=== PATIENT | female | born 1955 | race Caucasian/White ===

== ENCOUNTER → 2016-10-04 | Outpatient (CLI) | payer OTHER ==
[~2016-10-04] MED LIST: ACET-77 PO; AMLO10TA2 PO; ASPI-808 PO; CARV12.53 PO; CATHETER FLUSH 10 ML SYR IV PRN; CELE200C PO; CHOL200014 PO; CLOP75TA69 PO; CYCL10TA9 PO; DOCU100T7 PO; FLUT9.9S NS; GABA600T2 PO; LISI30TA5 PO; LOVA20TA2 PO; MIRA50TA PO; PANT40TA3 PO; REGADENOSON 0.4 MG/5 ML SYR (LEXISCAN) IV ONE; RT-ALBUINH IH; SENN-137 PO; TIOT18CA2 IH; [UNRECOGNIZED DRUG - CODE] PO
[2016-10-04 13:01] VITALS: BP 145/91
[2016-10-04 13:04] VITALS: BP 146/79
[2016-10-04 13:06] VITALS: BP 139/86
[2016-10-04 13:07] VITALS: BP 142/90
--- NOTE | 2016-10-05 08:27 | STRESS TEST ---
PROCEDURE PHYSICIAN: ALFONSO MINOR DATE OF PROCEDURE: 10/04/2016 RESTING AND POST REGADENOSON TECHNETIUM 99M TETROFOSMIN SPECT CT IMAGING: ORDERING PHYSICIAN: Dr. Minor. PRIMARY PHYSICIAN: Dr. Lawson. OTHER PHYSICIAN: Lexi Morillo APRN CLINICAL DIAGNOSES: 1. Coronary artery disease. 2. COPD. 3. Tobacco use. 4. Hypertension. Baseline images were carried out after injection of 10.47 mCi of technetium 99m tetrofosmin. This was followed by 0.4 mg of regadenoson and 32.9 mCi of technetium 99m tetrofosmin for stress imaging. The electrocardiogram showed sinus rhythm at baseline and the electrocardiogram did not change significantly with regadenoson infusion. Isolated premature ventricular contractions were seen during the study. She noted moderate shortness of breath and mild chest discomfort, which resolved in a few minutes after the regadenoson infusion. Review of images at rest and following stress, indicate a small fixed apical perfusion defect. Gated images show well preserved global left ventricular systolic function. There appears to be a small area of apical akinesis. Left ventricular ejection fraction is calculated to be 72%. Left ventricular end-diastolic volume is 64 mL. TID is absent (0.9). CONCLUSIONS: 1. This study suggests a small apical infarction without ischemia. 2. Small area of localized apical akinesis. 3. Left ventricular ejection fraction is calculated to be 72%. Job ID: [id number] Dictated Date: 10/04/2016 15:29:07 Engagement Quality Consultant Date: 10/05/2016 08:23:00 / pito
== END ==
LOC: CARD 11:05
PROVIDERS: ATTEND Internal Medicine Cardiovascular Disease
DX: I25.10 Atherosclerotic heart disease of native coronary artery without angina pectoris (principal); J43.8 Other emphysema; I10 Essential (primary) hypertension; R06.02 Shortness of breath; Z72.0 Tobacco use
CPT/HCPCS: 78452; 93017

== ENCOUNTER → 2016-10-11 | Outpatient (CLI) | payer MEDICARE, OTHER ==
[~2016-10-11] MED LIST changes: -CATHETER FLUSH 10 ML SYR IV PRN; -REGADENOSON 0.4 MG/5 ML SYR (LEXISCAN) IV ONE
--- NOTE | 2016-10-14 07:17 | ECHOCARDIOGRAPHY REPORT ---
PROCEDURE PHYSICIAN: ALFONSO MINOR DATE OF PROCEDURE: 10/11/2016 TWO DIMENSIONAL ECHOCARDIOGRAM REPORT PRIMARY PHYSICIAN: Dr. Lawson OTHER PHYSICIAN: India Morillo APRN REFERRING PHYSICIAN: ORDERING PHYSICIAN: Dr. Minor INDICATION FOR THE PROCEDURE: Coronary artery disease. MEASUREMENTS DERIVED VALUES LV DIAMETER (LAX) NORMALS NORMALS Diastolic 4.8 (3.6-5.2) Eject. Fract. (60%+/-6%) Systolic (2.3-3.9) Diastolic Vol. % Shortening (0.22-0.42) Systolic Vol. Aortic Root 3.2 IVS THICKNESS Diastolic 1.1 (0.6-1.1) LVPW THICKNESS Diastolic 0.9 (0.6-1.1) LA DIAMETER Systolic 3.3 (2.1-3.7) DESCRIPTION: This is a technically difficult study and is not ideal for wall motion analysis. Global left ventricular systolic function appears well preserved. Left ventricular ejection fraction is approximately 55%. The aortic, mitral and tricuspid valve leaflets show good leaflet excursion. There Is no significant pericardial effusion seen. Doppler imaging shows trivial to mild mitral, tricuspid, pulmonic and aortic regurgitation. There is no Doppler evidence of significant valvular stenosis. Mitral inflow is suggestive of grade I diastolic dysfunction of the left ventricle. Pulmonary artery pressure is estimated to be approximately 35 mmHg. There is no Doppler evidence of significant valvular stenosis. There is no evidence of significant intracardiac shunt on this transthoracic echographic study. The inferior vena cava appears to be of normal size and exhibits inspiratory collapse. CONCLUSIONS: 1. Normal left ventricular systolic function with an ejection fraction of approximately 55%. 2. Trivial to mild mitral, tricuspid, pulmonic and aortic regurgitation. 3. Mild diastolic dysfunction of the left ventricle. 4. Pulmonary artery systolic pressure is estimated to be approximately 35 mmHg. Job ID: [id number] Dictated Date: 10/13/2016 11:27:16 Video Game Designer Date: 10/14/2016 07:07:57 / kamille
== END ==
LOC: CARD 11:18
PROVIDERS: ATTEND Internal Medicine Cardiovascular Disease
DX: I25.10 Atherosclerotic heart disease of native coronary artery without angina pectoris (principal); J43.8 Other emphysema; I10 Essential (primary) hypertension; R06.02 Shortness of breath; Z72.0 Tobacco use
CPT/HCPCS: 93306; 93923

== ENCOUNTER 2016-10-27 06:18 | Outpatient (CLI) | payer MEDICARE, OTHER ==
[~2016-10-27] VITALS: Ht 165.1 cm; Wt 71.7 kg
[2016-10-27] MEDS ORDERED: AMLO10TA2 PO (16:09)
[2016-10-27] MEDS ORDERED: CYCL10TA9 PO (16:09)
[2016-10-27] MEDS ORDERED: CELE200C PO (16:09)
[2016-10-27] MEDS ORDERED: [UNRECOGNIZED DRUG - CODE] PO (16:09)
[2016-10-27] MEDS ORDERED: DOCU100T7 PO (16:09)
[2016-10-27] MEDS ORDERED: TIOT18CA2 IH (16:09)
[2016-10-27] MEDS ORDERED: ASPI-808 PO (16:09)
[2016-10-27] MEDS ORDERED: CARV12.53 PO (16:09)
[2016-10-27] MEDS ORDERED: SENN-137 PO (16:09)
[2016-10-27] MEDS ORDERED: LISI30TA5 PO (16:09)
[2016-10-27] MEDS ORDERED: PANT40TA3 PO (16:09)
[2016-10-27] MEDS ORDERED: ACET-77 PO (16:09)
[2016-10-27] MEDS ORDERED: RT-ALBUINH IH (16:09)
[2016-10-27] MEDS ORDERED: CLOP75TA69 PO (16:09)
[2016-10-27] MEDS ORDERED: LOVA20TA2 PO (16:09)
[2016-10-27] MEDS ORDERED: FLUT9.9S NS (16:09)
[2016-10-27] MEDS ORDERED: GABA600T2 PO (16:09)
[2016-10-27] MEDS ORDERED: MIRA50TA PO (16:09)
[2016-10-27] MEDS ORDERED: CHOL200014 PO (16:09)
== END 2016-10-27 16:10 ==
LOC: PREOP 06:18
PROVIDERS: ATTEND Surgery
DX: Z01.818 Encounter for other preprocedural examination (principal); K92.1 Melena

== ENCOUNTER 2016-11-01 06:46 | Day surgery (SDC) | payer MEDICARE, OTHER ==
[~2016-11-01] VITALS: Ht 165.1 cm; Wt 71.7 kg
[2016-11-01] MEDS ORDERED: NS IV 1000 ML 1,000 ML IV STA (07:08)
[2016-11-01] MEDS ORDERED: HURRICAINE EXT TUBE (BENZOCAINE) XX PRN (07:15)
[2016-11-01] MEDS ORDERED: PROPOFOL INJECTION 50 ML IV ONE (07:26)
[2016-11-01 07:28] VITALS: BP 129/83
--- NOTE | 2016-11-01 08:28 | Progress Note-Post Operative ---
Post-Operative Progess Note Pre-Operative Diagnosis blood in stool, family history colon cancer, history of polyps Post-Operative Diagnosis diverticulosis, colon polyps Post-Op Procedure Note Date of Procedure: Nov 01, 2016 Name of Procedure: colonoscopy with hot bx polypectomy x 2 Procedure Note/Findings see note Anesthesia Type per coordinator of health services Estimated blood loss (mL): none Specimen(s) collected sigmoid polyp, rectal polyp OBDULIA BARCENAS DO Nov 01, 2016 8:28 am
--- NOTE | 2016-11-01 08:29 | Discharge Inst-Simple/Standard ---
Discharge Inst-Standard Patient Instructions/Follow Up Plan of Care/Instructions/FU: 2 weeks marian Hold aspirin and plavix for 3 more days then restart. Activity as Tolerated: Yes Discharge Diet: Regular Diet OBDULIA BARCENAS DO Nov 01, 2016 8:29 am
[2016-11-01 08:40] VITALS: BP 150/96
[2016-11-01 09:15] VITALS: BP 147/98
[2016-11-01 10:34] VITALS: BP 147/98
--- NOTE | 2016-11-01 12:39 | OPERATIVE REPORT ---
PROCEDURE PHYSICIAN: OBDULIA BARCENAS DATE OF PROCEDURE: 11/01/2016 PREOPERATIVE DIAGNOSIS: 1. Blood in stool. 2. Family history of colon cancer. 3. Personal history of colon polyps. POSTOPERATIVE DIAGNOSES: 1. Diverticulosis. 2. Colon polyps. PROCEDURE: Colonoscopy with hot biopsy polypectomy x2, sigmoid and rectal polyps. SURGEON: Milena. ANESTHESIA: Per HOST. ESTIMATED BLOOD LOSS: None. COMPLICATIONS: None. INDICATIONS: The patient is a 61-year-old female with a recent history of blood in his stool. She also has constipation and has a family history colon cancer and personal history of colon polyps. The patient understands the risks and benefits of the procedure and wished to proceed with the procedure. Consent was signed on the chart. PROCEDURE: The patient was taken to the endoscopy suite, placed in left lower recumbent position. Timeout was performed. Digital rectal exam was performed. There were no palpable polyps, masses, ulcerations, no fissures. The scope was inserted in the rectum and advanced all the way to the cecum with minimal difficulty. Prep was adequate with irrigation and suction. The scope was then slowly retracted back. There were no polyps, masses ulceration in the cecum, ascending, transverse, and descending colon. Within the sigmoid colon there was a minimal amount of diverticulosis present. There was also a small polyp, which hot biopsy polypectomy was performed. The scope was continuously retracted back to the rectum, where there was a second polyp, which hot biopsy polypectomy was performed. The scope was also retroflexed noting no other pathology. The scope was returned to its normal position slowly withdrawn until completely removed. RECOMMENDATIONS: The patient will follow-up in 2 weeks to discuss pathology results. She will need repeat colonoscopy in 5 years. If she has any other problems before that, she should be reevaluated at that time. Job ID: [id number] Dictated Date: 11/01/2016 08:36:09 Supervisor [employer] Date: 11/01/2016 12:34:21 / kamille
== END 2016-11-01 09:20 | disposition home or self-care (01) ==
LOC: ENDO 06:46
PROVIDERS: ATTEND Surgery
DX: K92.1 Melena (principal); K63.5 Polyp of colon; K62.1 Rectal polyp; K57.30 Diverticulosis of large intestine without perforation or abscess without bleeding; Z80.0 Family history of malignant neoplasm of digestive organs
CPT/HCPCS: 88305

== ENCOUNTER → 2018-08-08 | Outpatient (CLI) | payer MEDICARE ==
[~2018-08-08] MED LIST changes: -AMLO10TA2 PO; +AMLO10TA6 PO; -CHOL200014 PO; +CHOL200085 PO
--- NOTE | 2018-08-08 14:54 | Diagnostic Imaging Report ---
PROCEDURE: MRI lumbar spine. TECHNIQUE: Multiplanar, multisequence MRI of the lumbar spine was performed without contrast. INDICATION: Chronic low back pain and bilateral hip pain. Left leg pain with numbness and tingling. COMPARISON: None. FINDINGS: For the purposes of this exam there are five lumbar type vertebral bodies with the last well formed disk space designated L5-S1. There is normal anatomic alignment of the lumbar spine. The visualized vertebral bodies demonstrate normal height and marrow signal. The disc heights are generally preserved, with mildly decreased T2 signal. The conus is normal in position and configuration. No large prevertebral or paraspinal soft tissue masses are seen. The axial images demonstrate: T12-L1: No significant disc bulge. No spinal canal or foraminal stenosis. L1-L2: Mild facet arthropathy. No disc bulge. No spinal canal or foraminal stenosis. L2-L3: Mild diffuse disc bulge, facet arthropathy. No spinal canal or foraminal stenosis. L3-L4: Diffuse disc bulge, facet arthropathy, ligamentous infolding. No spinal canal or foraminal stenosis. L4-L5: Diffuse disc bulge, facet arthropathy, ligamentous infolding. Mild narrowing of the left lateral recess. No spinal canal stenosis. Mild left foraminal narrowing. No right foraminal stenosis. L5-S1: Diffuse disc bulge, facet arthropathy. No spinal canal stenosis. No right foraminal stenosis. Moderate left foraminal stenosis. IMPRESSION: 1. Mild multilevel degenerative changes in the lumbar spine with moderate left foraminal stenosis at L5-S1. No spinal canal stenosis. Dictated by: Dictated on workstation # [id number]
== END ==
LOC: RAD 13:25
PROVIDERS: ATTEND Nurse Practitioner Family
DX: M48.07 Spinal stenosis, lumbosacral region (principal); M47.26 Other spondylosis with radiculopathy, lumbar region
CPT/HCPCS: 72148

== ENCOUNTER → 2018-08-13 | Outpatient (CLI) | payer MEDICARE ==
--- NOTE | 2018-08-13 12:44 | Diagnostic Imaging Report ---
INDICATION: Right leg pain with history of diabetes and coronary artery disease.. TECHNIQUE: Segmental pulse pressures were performed of the upper and lower extremities. FINDINGS: Right brachial pressure: 146 mmHg Right ankle pressure: Posterior tibial 159, dorsalis 162 mm Hg Right ankle-brachial index: POSTERIOR TIBIAL 1.02, DORSALIS PEDIS, 1.04 Left brachial pressure: 156 mm Hg Left ankle pressure: Posterior tibial 167, dorsalis pedis, 154 mmHg Left ankle-brachial index: POSTERIOR TIBIAL 1.07, DORSALIS PEDIS 0.99 IMPRESSION: Relatively normal to slightly borderline ankle-brachial indices as above. Ankle-Brachial Index Diagnosis/Interpretation <=0.90 Peripheral Arterial Disease 0.91-0.99 Borderline 1.00-1.40 Normal >1.40 Concern for noncompressible arteries, (assoc with Diabetes Mellitus) Dictated by: Dictated on workstation # [id number]
== END ==
LOC: RAD 10:39
PROVIDERS: ATTEND Nurse Practitioner Family
DX: I73.9 Peripheral vascular disease, unspecified (principal); M54.32 Sciatica, left side; Z86.79 Personal history of other diseases of the circulatory system; Z86.39 Personal history of other endocrine, nutritional and metabolic disease
CPT/HCPCS: 93922

== ENCOUNTER 2018-09-12 12:06 | Outpatient (RCR) | payer MEDICARE, OTHER ==
[~2018-09-12 12:06] MED LIST changes: -AMLO10TA6 PO; +AMLO10TA7 PO; +CHOL200014 PO; -CHOL200085 PO; -GABA600T2 PO; +GBPN600T PO
== END 2018-12-11 | disposition home or self-care (01) ==
LOC: CARD 12:06
PROVIDERS: ATTEND Nurse Practitioner Family
DX: R00.2 Palpitations (principal)
CPT/HCPCS: 93225; 93226

== ENCOUNTER → 2018-09-25 | Outpatient (CLI) | payer MEDICARE ==
[~2018-09-25] MED LIST changes: +CATHETER FLUSH 10 ML SYR IV PRN; +REGADENOSON 0.4 MG/5 ML SYR (LEXISCAN) IV ONE
[2018-09-25 07:26] LABS: BASOPHILS % (AUTO) 1 % (0-10); EOSINOPHILS # (AUTO) 0.2 10^3/uL (0.0-0.3); EOSINOPHILS % (AUTO) 3 % (0-10); HEMATOCRIT 40 % (35-52); HEMOGLOBIN 13.8 G/DL (11.5-16.0); LYMPHOCYTES # (AUTO) 1.5 X 10^3 (1.0-4.0); LYMPHOCYTES % (AUTO) 26 % (12-44); MEAN CORPUSCULAR HEMOGLOBIN 32 PG (25-34); MEAN CORPUSCULAR HGB CONC 35 G/DL (32-36); MEAN CORPUSCULAR VOLUME 94 FL (80-99); MEAN PLATELET VOLUME 9.2 FL (7.4-10.4); MONOCYTES # (AUTO) 0.4 X 10^3 (0.0-1.0); MONOCYTES % (AUTO) 6 % (0-12); NEUTROPHILS # (AUTO) 3.6 X 10^3 (1.8-7.8); NEUTROPHILS % (AUTO) 64 % (42-75); PLATELET COUNT 259 10^3/uL (130-400); RED BLOOD COUNT 4.27 10^6/uL (4.35-5.85); RED CELL DISTRIBUTION WIDTH 14.1 % (10.0-14.5); WHITE BLOOD COUNT 5.7 10^3/uL (4.3-11.0)
[2018-09-25 07:48] LABS: ALANINE AMINOTRANSFERASE 10 U/L (0-55); ALBUMIN 4.2 GM/DL (3.2-4.5); ALKALINE PHOSPHATASE 89 U/L (40-136); BILIRUBIN,TOTAL 0.3 MG/DL (0.1-1.0); BUN/CREATININE RATIO 12; CALCIUM 9.3 MG/DL (8.5-10.1); CARBON DIOXIDE 24 MMOL/L (21-32); CHLORIDE 112 MMOL/L (98-107); CHOLESTEROL 183 MG/DL (< 200); CREATININE SERUM 0.75 MG/DL (0.60-1.30); GFR ESTIMATED > 60; GLUCOSE 76 MG/DL (70-105); HDL CHOLESTEROL 55 MG/DL (40-60); MAGNESIUM 1.9 MG/DL (1.8-2.4); POTASSIUM 3.8 MMOL/L (3.6-5.0); SODIUM 145 MMOL/L (135-145); TOTAL PROTEIN 6.3 GM/DL (6.4-8.2); TRIGLYCERIDES 103 MG/DL (<150); VLDL CHOLESTEROL 21 MG/DL (5-40)
[2018-09-25 08:02] LABS: ERYTHROCYTE SEDIMENTATION RATE 13 MM/HR (0-30)
--- NOTE | 2018-09-27 10:21 | STRESS TEST ---
DATE OF SERVICE: RESTING AND POST REGADENOSON TECHNETIUM-99M TETROFOSMIN SPECT CT IMAGING ORDERING PHYSICIAN: Dr. Minor. PRIMARY CARE PHYSICIAN: Lexi Morillo APRN CLINICAL DIAGNOSIS: Coronary artery disease. Baseline images were carried out after injection of 10.87 mCi of technetium-99m Tetrofosmin. This was followed by 0.4 Regadenoson and 29.4 mCi of technetium-99m Tetrofosmin for stress imaging. The electrocardiogram showed sinus rhythm at baseline and it did not change significantly with the Regadenoson infusion. A few isolated premature ventricular contractions were seen. The patient tolerated the procedure well. Review of images at rest and following stress indicates some apical thinning both at rest and following Regadenoson infusion. Gated images show normal global left ventricular systolic function and normal regional wall motion including the apical wall. There is no distinct evidence of myocardial ischemia or infarction. Left ventricular ejection fraction is 73%. Left ventricular end diastolic volume is 71 mL. TID is absent (1.03). CONCLUSIONS: 1. No evidence of any significant myocardial ischemia or infarction is seen. 2. Normal regional wall motion. 3. Normal global left ventricular systolic function with a calculated ejection fraction of 73%. Job ID: [id number] DocumentID: [id number] Dictated Date: 09/27/2018 09:53:59 Produce Field Merchandiser Date: 09/27/2018 10:20:37 Dictated By: ALFONSO MINOR MD, MA, FACP, FACC,
== END ==
LOC: CARD 07:07
PROVIDERS: ATTEND Internal Medicine Cardiovascular Disease
DX: I25.10 Atherosclerotic heart disease of native coronary artery without angina pectoris (principal); I10 Essential (primary) hypertension; I77.89 Other specified disorders of arteries and arterioles; J44.9 Chronic obstructive pulmonary disease, unspecified; R06.02 Shortness of breath; R00.2 Palpitations; Z72.0 Tobacco use
CPT/HCPCS: 36415; 78452; 80053; 80061; 83735; 83880; 84443; 85025; 85652; 93017

== ENCOUNTER → 2018-10-04 | Outpatient (CLI) | payer MEDICARE ==
[~2018-10-04] MED LIST changes: -CATHETER FLUSH 10 ML SYR IV PRN; -REGADENOSON 0.4 MG/5 ML SYR (LEXISCAN) IV ONE
== END ==
LOC: CARD 10:45
PROVIDERS: ATTEND Internal Medicine Cardiovascular Disease
DX: I25.10 Atherosclerotic heart disease of native coronary artery without angina pectoris (principal); I10 Essential (primary) hypertension; R00.2 Palpitations; R06.02 Shortness of breath; J44.9 Chronic obstructive pulmonary disease, unspecified; Z72.0 Tobacco use

== ENCOUNTER → 2018-10-04 | Outpatient (CLI) | payer MEDICARE | LOC: RAD 10:03 | PROVIDERS: ATTEND Nurse Practitioner Family | DX: Z12.31 Encounter for screening mammogram for malignant neoplasm of breast (principal) | CPT/HCPCS: 77067 ==

== ENCOUNTER → 2018-11-13 | Outpatient (CLI) | payer MEDICARE ==
[2018-11-13 11:06] LABS: ABG BASE EXCESS -1.8 MMOL/L (-2.5-2.5); ABG OXYGEN SATURATION 97 % (94-100); ABG PCO2 36 MMHG (35-45); ABG PO2 75 MMHG (79-93); ABG TCO2 23.7 MMOL/L (21.0-31.0)
[2018-11-13 11:08] LABS: ALLENS TEST YES-POS; INSPIRED O2 ROOM AIR; PATIENT TEMP 96.1; VENTILATOR NO
[2018-11-13 11:09] LABS: BUN/CREATININE RATIO 15; CREATININE SERUM 0.71 MG/DL (0.60-1.30); GFR ESTIMATED > 60
== END ==
LOC: RT 10:20
PROVIDERS: ATTEND Nurse Practitioner Family
DX: I27.21 Secondary pulmonary arterial hypertension (principal); I51.9 Heart disease, unspecified; G47.10 Hypersomnia, unspecified; R05 Cough; R06.89 Other abnormalities of breathing; J30.9 Allergic rhinitis, unspecified; R06.00 Dyspnea, unspecified
CPT/HCPCS: 36415; 36600; 82565; 82805; 84520

== ENCOUNTER 2018-11-30 19:06 | Outpatient (CLI) | payer MEDICARE | END 2018-12-01 05:30 | disposition home or self-care (01) | LOC: SLEEP 19:06 | PROVIDERS: ATTEND Nurse Practitioner Family | DX: G47.10 Hypersomnia, unspecified (principal); R06.00 Dyspnea, unspecified; J30.9 Allergic rhinitis, unspecified; R06.89 Other abnormalities of breathing; R05 Cough; I51.9 Heart disease, unspecified; I27.21 Secondary pulmonary arterial hypertension; R09.02 Hypoxemia; R06.83 Snoring | CPT/HCPCS: 95810 ==

== ENCOUNTER → 2018-12-14 | Outpatient (CLI) | payer MEDICARE ==
[~2018-12-14] MED LIST changes: +RT-ALBUTEROL SULF 2.5 MG/3 ML PRE-MIX VIAL INH ONE; +RT-ALBUTEROL SULF 2.5 MG/3 ML PRE-MIX VIAL ONE
--- NOTE | 2018-12-14 19:23 | Diagnostic Imaging Report ---
PROCEDURE: CT chest without contrast. TECHNIQUE: Multiple contiguous axial images were obtained through the chest without the use of intravenous contrast. Auto Exposure Controls were utilized during the CT exam to meet ALARA standards for radiation dose reduction. DATE: December 14, 2018. COMPARISON: None. INDICATION: 63-year-old female, cough and dyspnea. PROCEDURE: Axial noncontrasted CT images of the chest. Noncontrasted limits the evaluation of the mediastinum and vascular structures. FINDINGS: There are upper lobe predominantly changes of centrilobular and paraseptal emphysema. There is no identified pulmonary nodule or lung mass. There is no focal airspace consolidation. There is no pneumothorax. There is no pleural effusion. The central airways are patent. The heart is not enlarged. There is no pericardial effusion. There is no identified abnormally enlarged mediastinal or axillary lymph node which meets CT size criteria for adenopathy. There are bilateral breast implants. There is a low-attenuation lesion in the left lobe of the liver on axial image 33, too small to characterize, measuring 7 mm in size. Additional evaluation of the imaged portions of the upper abdomen is unremarkable. There is no identified acute bony abnormality. IMPRESSION: 1. Upper lobe predominant changes of centrilobular and paraseptal emphysema. 2. No identified acute cardiopulmonary abnormality. Dictated on workstation # [id number]
== END ==
LOC: RAD 13:07
PROVIDERS: ATTEND Nurse Practitioner Family
DX: J43.2 Centrilobular emphysema (principal); J30.9 Allergic rhinitis, unspecified; G47.10 Hypersomnia, unspecified; I51.9 Heart disease, unspecified; I27.21 Secondary pulmonary arterial hypertension
CPT/HCPCS: 71250; 94060; 94726; 94729

== ENCOUNTER → 2019-02-08 | Outpatient (CLI) | payer MEDICARE, OTHER ==
[~2019-02-08] MED LIST changes: -RT-ALBUTEROL SULF 2.5 MG/3 ML PRE-MIX VIAL INH ONE; -RT-ALBUTEROL SULF 2.5 MG/3 ML PRE-MIX VIAL ONE
--- NOTE | 2019-02-08 22:31 | Diagnostic Imaging Report ---
Clinical indication: Patient with thyroid adenoma and anterior soft tissue mass palpated directly over thyroid. Exam: Axial CT scan of the neck soft tissue performed with 75 cc of Omnipaque 350 IV contrast. Sagittal and coronal reformatted images were created. Comparison: None. Findings: There is no neck soft tissue mass or lymphadenopathy seen. The nasopharynx, oropharynx, hypopharynx and laryngeal soft tissue structures are grossly symmetric with no measurable mass seen. Thyroid gland is unremarkable. There is a 2 mm stone within the deep lobe of the right parotid gland. Otherwise, the salivary glands are unremarkable. Neck vascular structures are unremarkable. Limited visualization of intracranial structures are unremarkable. Visualized portions of the oral cavity, tongue, sublingual space and submandibular regions are unremarkable. Emphysematous lung disease is seen. There are vertebral body spurs most pronounced at the C3-C4 level. There is severe left C3-C4 neural foramen narrowing due to facet arthropathy and uncinate spurs. There is at least mild central canal narrowing at the C3-C4 level. Impression: 1: There is no neck soft tissue mass or lymphadenopathy seen. Thyroid gland shows no gross abnormality visualized. Ultrasound would better evaluate, if necessary. 2: There is a small nonobstructive right parotid gland stone. Otherwise, salivary glands are unremarkable. 3: Emphysematous lung disease. Dictated by: Dictated on workstation # [id number]
== END ==
LOC: RAD 14:39
PROVIDERS: ATTEND Nurse Practitioner Family
DX: D34 Benign neoplasm of thyroid gland (principal); K11.5 Sialolithiasis; J43.9 Emphysema, unspecified
CPT/HCPCS: 70491

== ENCOUNTER → 2019-02-26 | Outpatient (CLI) | payer MEDICARE, OTHER ==
--- NOTE | 2019-02-26 12:15 | Diagnostic Imaging Report ---
INDICATION: Palpable lump in the anterior chest and at the level of thyroid. There is an area of hyperechogenicity in the midline at the area of lump which in the transverse plane measures approximately 12 mm. However, this elongates on longitudinal axis and may merely represent fatty tissue. No fluid collection or cyst is seen. No abnormal vascularity is seen. IMPRESSION: Hyperechoic tissue which may be fat at the area of palpable abnormality. No other significant abnormality is detected. Dictated by: Dictated on workstation # [id number]
== END ==
LOC: RAD 08:14
PROVIDERS: ATTEND Nurse Practitioner Family
DX: D17.1 Benign lipomatous neoplasm of skin and subcutaneous tissue of trunk (principal)
CPT/HCPCS: 76604

== ENCOUNTER 2019-07-23 10:45 | Day surgery (SDC) | payer MEDICARE, OTHER ==
[2019-07-23] VITALS (7 sets, daily range): BP systolic 105–141; BP diastolic 70–87
[~2019-07-23] VITALS: Ht 165 cm; Wt 76.9 kg
[2019-07-23] MEDS ORDERED: HEParin (CATH LAB) 2,000 ML IV ONE (10:58)
[2019-07-23] MEDS ORDERED: LIDOCAINE 1% INJ 20 ML 20 ML VIAL ONE (10:58)
[2019-07-23] MEDS ORDERED: NS IV 1000 ML 1,000 ML ONE (10:58)
[2019-07-23] MEDS ORDERED: NS IV 1000 ML 1,000 ML IV SCH ×2 (11:00→12:39)
[2019-07-23 11:25] LABS: MEAN PLATELET VOLUME 9.5 FL (7.4-10.4); WHITE BLOOD COUNT 7.5 10^3/uL (4.3-11.0)
[2019-07-23 11:39] LABS: INR 0.9 (0.8-1.4)
[2019-07-23 11:42] LABS: ALANINE AMINOTRANSFERASE 12 U/L (0-55); ALBUMIN 4.6 GM/DL (3.2-4.5); ALKALINE PHOSPHATASE 128 U/L (40-136); BILIRUBIN,TOTAL 0.3 MG/DL (0.1-1.0); BUN/CREATININE RATIO 12; CALCIUM 9.7 MG/DL (8.5-10.1); CARBON DIOXIDE 26 MMOL/L (21-32); CHLORIDE 106 MMOL/L (98-107); CREATININE SERUM 0.82 MG/DL (0.60-1.30); GFR ESTIMATED > 60; GLUCOSE 85 MG/DL (70-105); POTASSIUM 3.9 MMOL/L (3.6-5.0); SODIUM 142 MMOL/L (135-145); TOTAL PROTEIN 7.4 GM/DL (6.4-8.2)
[2019-07-23] MEDS ORDERED: fentaNYL INJECTION 100 MCG/2 ML AMP ONE (11:48)
[2019-07-23] MEDS ORDERED: MIDAZOLAM 5 MG/5 ML (VERSED) VIAL ONE (11:48)
[2019-07-23] MEDS ORDERED: AMLO5TAB9 PO (12:01)
[2019-07-23] MEDS ORDERED: FLUT1BLS3 IH (12:10)
[2019-07-23] MEDS ORDERED: DICL100G18 TP (12:10)
[2019-07-23] MEDS ORDERED: TIZA4TAB4 PO (12:10)
[2019-07-23] MEDS ORDERED: CETI10TA17 PO (12:10)
[2019-07-23] MEDS ORDERED: METH1ADH5 TP (12:10)
[2019-07-23] MEDS ORDERED: CALC625T66 PO (12:15)
[2019-07-23] MEDS ORDERED: HYDR-3812 PO (12:16)
[2019-07-23] MEDS ORDERED: NITR0.4T39 SL (12:20)
[2019-07-23] MEDS ORDERED: LIDO700A45 TP (12:20)
[2019-07-23] MEDS ORDERED: MULT-192 PO (12:23)
[2019-07-23] MEDS ORDERED: BISA5TAB8 PO (12:23)
--- NOTE | 2019-07-23 12:39 | Cardiac Procedure Note-CS/ASA ---
Pre-Procedure Note Pre-Op Procedure Note H&P Reviewed The H&P was reviewed, patient examined and no changes noted. Date H&P Reviewed: Jul 23, 2019 Time H&P Reviewed: 12:10 Conscious Sedation Pre-Proced Time 12:10 ASA Score 3 For ASA 3 and 4: Consider anesthesia and medical clearance. Also, for patients with a history of failed moderate sedation consider anesthesia. Airway Lungs Heart ASA score ASA 1: a normal healthy patient ASA 2: a patient with a mild systemic disease (mid diabetes, controlled hypertension, obesity ASA 3: a patient with a severe systemic disease that limits activity (angina, COPD, prior Myocardial infarction) ASA 4: a patient with an incapacitating disease that is a constant threat to life (CHF, renal failure) ASA 5: a moribund patient not expected to survive 24 hrs. (ruptured aneurysm) ASA 6: a declared brain- patient whose organs are being harvested. For emergent operations, add the letter E after the classification Mallampati Classification Grade 2 Sedation Plan Analgesia, Amnesia, Plan communicated to team members, Discussed options with patient/fam, Discussed risks with patient/fam The patient is an appropriate candidate to undergo the planned procedure, sedation, and anesthesia. The patient immediately re-assessed prior to indication. ALFONSO JIMÉNEZ MD FACP FAC CCDS Jul 23, 2019 12:39 POS
--- NOTE | 2019-07-23 12:42 | Discharge Inst-Cardiology ---
Discharge Inst-Cardiac Discharge Medications Continued Medications: Acetaminophen (Acetaminophen) 500 Mg Tablet 1000 MG PO QID, TAB Albuterol Sulfate (Proair Hfa) 1 Puff Puff 2 PUFF IH Q4H PRN for SHORTNESS OF BREATH, PUFF Amlodipine Besylate (Amlodipine Besylate) 5 Mg Tablet 5 MG PO DAILY, TAB Aspirin (Aspirin) 325 Mg Tablet 325 MG PO DAILY, TAB Bisacodyl (Bisacodyl) 5 Mg Tablet.dr 5 MG PO HS, TAB Calcium Polycarbophil (Fiber-Tabs) 625 Mg Tablet 1875 MG PO DAILY, TAB TAKES 3 (625 MG) TABS DAILY Carvedilol (Carvedilol) 12.5 Mg Tablet 12.5 MG PO DAILY, TAB Celecoxib (Celebrex) 200 Mg Capsule 200 MG PO DAILY, CAP Cetirizine HCl (Cetirizine HCl) 10 Mg Tablet 10 MG PO HS, TAB Cholecalciferol (Vitamin D3) (Vitamin D) 2,000 Unit Tablet 2000 UNIT PO DAILY, TAB Clopidogrel Bisulfate (Plavix) 75 Mg Tablet 75 MG PO 1800, TAB TAKES WITH DINNER Diclofenac Sodium (Voltaren) 100 Gm Gel..gram. 1 APPLIC TP DAILY PRN, TUBE Docusate Sodium (Stool Softener) 100 Mg Tablet 400 MG PO HS, TAB take 4 (100mg) tabs Fluticasone Propionate (Flonase Allergy Relief) 9.9 Ml [place].susp 1 SPRAY NS DAILY PRN for CONGESTION, SPRAY Fluticasone/Umeclidin/Vilanter (Trelegy Ellipta 100-62.5-25) 1 Each Blst.w.dev 1 EACH IH DAILY Gabapentin (Gabapentin) 600 Mg Tablet 600 MG PO BID, TAB Hydrocodone/Acetaminophen (Hydrocodone-Acetamin 5-325 mg) 1 Each Tablet 1 TAB PO DAILY PRN for PAIN-MODERATE (5-7), TAB LAST FILLED 09-25-2018 #60 Lidocaine (Lidocaine 5% Patch) 1 Each Adh..patch 1 EACH TP DAILY PRN for Neuropathic pain MDD 2, PATCH 2 patches max for 12 hours, then 12 hours patch-free period. Lisinopril (Lisinopril) 30 Mg Tablet 30 MG PO DAILY, TAB Lovastatin (Lovastatin) 20 Mg Tablet 40 MG PO DAILY, TAB Multivitamin (Gummi Bear Multivitamin) 1 Each Tab.chew 1 EACH PO DAILY, TAB Nitroglycerin (Nitroglycerin) 0.4 Mg Tab.subl 0.4 MG SL UD PRN for CHEST PAIN, TAB Pantoprazole Sodium (Pantoprazole Sodium) 40 Mg Tablet.dr 40 MG PO DAILY, TAB Sennosides (Natural Vegetable Laxative) 8.6 Mg Tablet 51.6 MG PO HS, TAB TAKES 6 (8.6MG) TABS Tizanidine HCl (Tizanidine HCl) 4 Mg Tablet 4 MG PO HS, TAB ALFONSO JIMÉNEZ MD FACP FAC CCDS Jul 23, 2019 12:42 POS
--- NOTE | 2019-07-23 12:42 | Discharge Inst-Post CATH ---
Discharge Inst-CATH/EP Post Cardiac Cath/EP D/C Inst Follow Up/Plan F/u with Dr Minor in 2 weeks ACTIVITY * Go Home directly and rest. * Limit activity of the leg (or wrist if it was used) for 7 days including aerobics, swimming, jogging, bicycling, etc. * Restrict stair-climbing for 7 days if possible, if not, climb up with your n on-cath leg, then bring together on the same step. * Avoid lifting, pushing, pulling or excessive movement of the affected ex tremity for 7 days. * Customary sexual activity may be resumed after 2 days-use caution not to use a position that strains or causes pain to the affected extremity. * No driving for 24 hours. * NO SMOKING. * Avoid straining for bowel movements for 7 days. * Gentle walking on level ground is allowed. * Returning to work will depend on the type of procedure and the results. Your doctor will discuss this with you. CALL YOUR DOCTOR FOR ANY OF THE FOLLOWING: *If bleeding from the puncture site occurs- Apply gentle pressure to site with clean cloth and call your doctor or EMS. * If a knot or lump forms under the skin, increases in size, or causes pain. * If bruising appears to be worsening or moving further down your leg instead of disappearing. * Temperature above 101 F. CARE OF YOUR GROIN INCISION; * Bruising or purple discoloration of the skin near the puncture site is common. * You may shower only, no bathtub bathing for 5 days. Be careful to avoid slipping as your leg may feel stiff. * If a closure device was used on your femoral artery, please see the attached guide regarding care of the device and your leg. * Leave dressing on FOR 24 hours. CARE OF YOUR WRIST INCISION; * Bruising or purple discoloration of the skin near the puncture site is common. * You may shower. * DO NOT submerge wrist. * Leave dressing on FOR 24 hours. ALFONSO MINOR MD FACP FAC CCDS Jul 23, 2019 12:42 POS
[2019-07-23] MEDS ORDERED: PATIENT MAY USE OWN MEDS, ALL PO SCH (12:45)
--- NOTE | 2019-07-23 12:51 | NUR ---
SPOKE WITH THE PT (SHE HAD HER BOTTLES) WELL CALLING [facility] TO COMPLETE THE MED REC. PT WAS ABLE TO TELL ME HOW/WHEN SHE TAKES HER MEDICATIONS. GABAPENTIN: THE BOTTLE READS " 1 TAB TID" THE PT TAKES 1 TAB BID CARVEDILOL: THE BOTTLE READS " 1 TAB BID" HOWEVER THE PT IS JUST TAKING 1 TAB DAILY, I INFORMED HER OF THE DIRECTIONS AND SHE DID NOT REALIZE THE DIRECTIONS ARE BID. THE FOLLOWING MEDICATIONS THE PT GETS FROM THE [facility]: 06-19-2019 CELEBREX #100 MATTIE SANDOVAL - WHEN I SPOKE WITH [facility] THEY SAID THAT IT HAD BEEN ORDERED THRU THE [facility] BUT THEY DIDNT HAVE A DEFINATE DATE OF WHEN IT WAS GIVEN, ONLY THAT IT WAS ORDERED AT THE SAME TIME THE CELEBREX. THE FOLLOWING ARE FILLS DATES: 09-25-2018 HYDROCODONE #60/ONLY USES PRN 04-15-2019 GABAPENTIN #270 (SEE ABOVE NOTE FOR DAY SUPPLY) 04-25-2019 AMLODIPINE #90/90DS 05-30-2019 CARVEDILOL #180 ( SEE ABOVE NOTE) 05-30-2019 CETIRIZINE #90/90DS 05-30-2019 PANTOPRAZOLE #90/90DS 05-30-2019 LISINOPRIL #90/90DS 05-30-2019 CLOPIDOGREL # 90/90DS 06-19-2019 VITAMIN D #90/90DS 06-19-2019 CELEBREX #100/100DS 06-20-2019 TIZANIDINE #90/90DS 06-20-2019 LOVASTATIN #90/90DS OTC MEDS: TYLENOL ASPIRIN BISACODYL FIBER TABS DOCUSATE FLONASE LIDOCAINE PATCH MTV SENNOSIDES
--- NOTE | 2019-07-23 13:12 | CARDIAC CATHETERIZATION ---
DATE OF SERVICE: 07/23/2019 CARDIAC CATHETERIZATION REPORT The patient is a 64-year-old lady, who has multiple coronary artery disease risk factors and who reports a history of a myocardial infarction in 2010 at which time she was told that she had had occlusion of a small branch vessel, but subsequent cardiac catheterization was reported to be normal. She has had recurrent chest pain that is suggestive of angina. Cardiac catheterization was carried out today after having obtained an informed consent. DESCRIPTION OF PROCEDURE: She was brought to the cardiac catheterization laboratory in a fasting state. Right groin was prepared and draped in the usual sterile fashion. Lidocaine 1% was used for local anesthesia. Modified Seldinger technique was used to advance a 5-[place] sheath in right femoral artery, 5-[place] JL4 catheter was used for left coronary angiography, 5-[place] JR4 catheter was used for right coronary angiography, 5-[place] pigtail catheter was used for left heart catheterization and left ventricular angiography. Pigtail catheter was removed. Angiography of right femoral artery had been carried out with sheath at the beginning of the procedure. At the end of the procedure, Mynx was used to achieve hemostasis. She tolerated the procedure well. HEMODYNAMICS: Left ventricular end-diastolic pressure following coronary angiography was 7 mmHg. There was no significant pressure gradient on pullback across the aortic valve. Ascending aortic pressure was 97/52 with a mean of 72 mmHg. CORONARY ANGIOGRAPHY: Left main coronary artery, left anterior descending, left circumflex and right coronary arteries do not exhibit any angiographically significant coronary artery disease. LEFT VENTRICULAR ANGIOGRAPHY: Left ventricular angiography was carried out in the right anterior oblique projection. Global left ventricular systolic function is normal. Left ventricular ejection fraction is approximately 60%. CONCLUSIONS: 1. No angiographically significant coronary artery disease. 2. Normal regional wall motion. 3. Normal global left ventricular systolic function with a calculated ejection fraction of approximately 60%. 4. Normal left ventricular end-diastolic pressure. DISCUSSION AND RECOMMENDATIONS: Based on the results of the study, chest discomfort does not appear to be of coronary origin. Continued risk factor modification is advised. Outpatient followup is advised. Job ID: [id number] DocumentID: [id number] Dictated Date: 07/23/2019 12:33:35 Service Desk Manager Date: 07/23/2019 13:12:02 Dictated By: ALFONSO JIMÉNEZ MD, MA, FACP, FACC,
== END 2019-07-23 15:55 | disposition home or self-care (01) ==
LOC: CATH 10:45 → CSD 13:20 → CATH 15:55
PROVIDERS: ATTEND Internal Medicine Cardiovascular Disease
DX: R07.9 Chest pain, unspecified (principal); I25.2 Old myocardial infarction; R00.2 Palpitations; I08.1 Rheumatic disorders of both mitral and tricuspid valves; I10 Essential (primary) hypertension; Z86.73 Personal history of transient ischemic attack (TIA), and cerebral infarction without residual deficits; I77.9 Disorder of arteries and arterioles, unspecified; F17.210 Nicotine dependence, cigarettes, uncomplicated; J44.9 Chronic obstructive pulmonary disease, unspecified; M79.10 Myalgia, unspecified site; M54.5 Low back pain; Z87.442 Personal history of urinary calculi; Z79.899 Other long term (current) drug therapy; Z79.82 Long term (current) use of aspirin; I27.20 Pulmonary hypertension, unspecified; G47.10 Hypersomnia, unspecified; Z79.01 Long term (current) use of anticoagulants; Z86.010 Personal history of colon polyps
CPT/HCPCS: 36415; 80053; 85027; 85610; 85730; 87081; 93458

== ENCOUNTER → 2019-11-05 | Outpatient (CLI) | payer MEDICARE ==
[~2019-11-05] MED LIST changes: -ACET-77 PO; +ACET-78 PO; +ACHD5005 PO; +AMLO5TAB9 PO; +BISA5TAB8 PO; +CALC625T66 PO; +CETI10TA17 PO; +DICL100G18 TP; +FLUT1BLS3 IH; +LIDO700A45 TP; +METH1ADH5 TP; +MULT-192 PO; +NITR0.4T39 SL; +TIZA4TAB4 PO
--- NOTE | 2019-11-05 14:21 | Diagnostic Imaging Report ---
INDICATION: Screening for osteoporosis. COMPARISON: None. FINDINGS: The bone mineral density of the hips and spine was measured. There are no prior studies for comparison. The T score for the spine is -2.2. This value does indicate osteopenia. The total T score for the left hip is -0.7 and for the right hip is 0.2. These values fall within the range of normal. However, the T score for the left femoral neck is -1.7 and for the right femoral neck -1.3. These T score values indicate osteopenia. AP Spine L1-L4: [BMD (g/cm2): 0.937] [T-Score: -2.2] [Z-Score: -1.2] [BMD Previous: NA] [BMD % Change: NA] LT Hip Neck: [BMD (g/cm2): 0.802] [T-Score: -1.7] [Z-Score: -0.6] LT Hip Total: [BMD (g/cm2):0.915] [T-Score:-0.7] [Z-Score: 0.0] [BMD Previous: NA] [BMD % Change: NA] RT Hip Neck: [BMD (g/cm2):0.863] [T-Score:-1.3] [Z-Score:-0.2] RT Hip Total: [BMD (g/cm2):1.031] [T-score:0.2] [Z-Score:0.9] [BMD Previous:NA] [BMD % Change:NA] *Indicates significant change from prior examination based on 95% confidence level. World Health Organization criteria for BMD interpretation classify patients as Normal (T-score at or above -1.0), Osteopenic (T-score between -1.0 and -2.5) or Osteoporotic (T-score at or below -2.5). LIMITATIONS AND MODIFICATION: None. FRACTURE RISK (FRAX SCORE): The ten year probability of (%): Major Osteoporotic Fracture: [9.1] Hip Fracture: [1.0] IMPRESSION: 1. There is osteopenia of the spine and both femoral necks. 2. The total T-scores for the hips fall within normal limits. 3. See below National Osteoporosis Foundation guidelines on when to potentially initiate pharmacologic therapy. Based on the National Osteoporosis Foundation Guidelines, pharmacologic treatment should be initiated in any of the following, unless clinical conditions suggest otherwise: * Any patient with prior fragility fracture of the hip or vertebrae. A spine fracture indicates 5X risk for subsequent spine fracture and 2X risk for subsequent hip fracture. * Osteoporosis (T-score <-2.5). * Postmenopausal women and men age 50 and older with low bone mass/osteopenia (T-score between -1.0 and -2.5) by DXA and 10-year major osteoporotic fracture greater than 20% or a 10-year probability of hip fracture greater than 3%. These fracture risks are supplied above in the FRAX score, if applicable. * Clinician judgement and/or patient preferences may indicate treatment for people with 10-year fracture probabilities above or below these levels. Dictated by: Dictated on workstation # [id number]
--- NOTE | 2019-11-06 09:00 | Diagnostic Imaging Report ---
EXAMINATION: Digital mammogram bilateral screening with CAD. COMPARISON: This study is compared to the prior exams of 10/04/2018, 09/05/2017, and 08/09/2016. PERSONAL HISTORY: At this time, there are no current complaints. FINDINGS: There are bilateral breast implants in place. The implants appear to be stable when compared to the prior exam. There is no sign of an extracapsular rupture of either implant. The fibroglandular tissue overlying both implants is heterogeneously dense. This does limit the sensitivity of this exam. When compared to the previous studies, there does not appear to have been any significant change. There is no primary or secondary sign of malignancy noted. IMPRESSION: 1. There is no evidence of malignancy. 2. The implants appear stable. ACR BI-RADS Category 1: Negative. Result letter will be mailed to the patient. Note: At least 10% of breast cancer is not imaged by mammography. Dictated by: Dictated on workstation # [id number]
== END ==
LOC: RAD 13:29
PROVIDERS: ATTEND Nurse Practitioner Family
DX: Z12.31 Encounter for screening mammogram for malignant neoplasm of breast (principal); Z13.820 Encounter for screening for osteoporosis; M85.89 Other specified disorders of bone density and structure, multiple sites; Z78.0 Asymptomatic menopausal state
CPT/HCPCS: 77067; 77080

== ENCOUNTER 2022-02-16 05:31 | Outpatient (CLI) | payer MEDICARE ==
[~2022-02-16] VITALS: Ht 165.1 cm; Wt 74.8 kg
[~2022-02-16 05:31] MED LIST changes: +AMLO-250 PO; +AMLO-251 PO; -AMLO10TA7 PO; -AMLO5TAB9 PO; +CYCL10TA25 PO; -CYCL10TA9 PO; +METH1ADH15 TP; -METH1ADH5 TP; -PANT40TA3 PO; +PANT40TA52 PO; +TIZA-186 PO; -TIZA4TAB4 PO
[2022-02-16] MEDS ORDERED: CARV25TA PO (08:34)
== END 2022-02-16 09:26 | disposition home or self-care (01) ==
LOC: PREOP 05:31
PROVIDERS: ATTEND Surgery
DX: Z01.818 Encounter for other preprocedural examination (principal)

== ENCOUNTER 2022-02-25 11:15 | Day surgery (SDC) | payer MEDICARE ==
[~2022-02-25] VITALS: Ht 165.1 cm; Wt 74.8 kg
[~2022-02-25 11:15] MED LIST changes: +CARV25TA PO
[2022-02-25] MEDS ORDERED: LACTATED RINGERS 1,000 ML IV STA (11:21)
[2022-02-25] MEDS ORDERED: LACTATED RINGERS 1,000 ML IV ONE (11:22)
[2022-02-25 11:46] VITALS: BP 112/67
[2022-02-25] MEDS ORDERED: PROPOFOL INJECTION 50 ML IV ONE (14:42)
--- NOTE | 2022-02-25 15:38 | Progress Note-Post Operative ---
Post-Operative Progess Note Surgeon (s)/Ingredient Scaler Helper (s) Surgeon OBDULIA BARCENAS DO Ingredient Scaler Helper: na Pre-Operative Diagnosis hx polyps Post-Operative Diagnosis colon polyps Procedure & Operative Findings Date of Procedure 02/25/22 Procedure Performed/Findings colonoscopy c hot bx polypectomy x 6 Anesthesia Type per mda Estimated Blood Loss Estimated blood loss (mL): scant Specimens/Packing Specimens Removed polyps OBDULIA BARCENAS DO Feb 25, 2022 15:38
[2022-02-25 15:39] VITALS: BP 122/77
--- NOTE | 2022-02-25 15:41 | Anesthesia-General Post-Op ---
MAC Patient Condition Mental Status/LOC: Same as Preop Cardiovascular: Satisfactory Nausea/Vomiting: Absent Respiratory: Satisfactory Pain: Controlled Complications: Absent Post Op Complications Complications None Follow Up Care/Instructions Patient Instructions None needed. Anesthesiology Discharge Order Discharge Order Patient is doing well, no complaints, stable vital signs, no apparent adverse anesthesia problems. No complications reported per nursing. LACI CHOW DO Feb 25, 2022 15:41
--- NOTE | 2022-02-25 15:43 | Discharge Inst-Simple/Standard ---
Discharge Inst-Standard Patient Instructions/Follow Up Plan of Care/Instructions/FU: 2 weeks Milena Hold ASA/Plavix 3 days then restart. Activity as Tolerated: Yes Discharge Diet: Regular Diet OBDULIA BARCENAS DO Feb 25, 2022 15:42
[2022-02-25 15:55] VITALS: BP 116/78
--- NOTE | 2022-02-26 01:02 | OPERATIVE REPORT ---
DATE OF SERVICE: 02/25/2022 PREOPERATIVE DIAGNOSIS: History of colon polyps. POSTOPERATIVE DIAGNOSIS: Colon polyps. PROCEDURE: Colonoscopy with hot biopsy polypectomy x6. SURGEON: Obdulia Abbott DO ANESTHESIA: Per MDA. ESTIMATED BLOOD LOSS: Scant. COMPLICATIONS: None. INDICATIONS: The patient is a 66-year-old female with a history of colon polyps. She understands risks and benefits of procedures and wishes to proceed. Consent was signed in the chart. DESCRIPTION OF PROCEDURE: The patient was taken to the endoscopy suite, placed in left lateral recumbent position. Timeout was performed. Digital rectal exam was performed. No palpable polyps, masses or ulcerations. Scope was inserted in the rectum and advanced all the way to cecum with minimal difficulty. Prep was adequate with some irrigation and suction. Scope was then slowly retracted back. Two cecal polyps present, which hot biopsy polypectomy was performed. Scope was then continuously retracted back in the ascending colon, 2 polyps were present, which hot biopsy polypectomies were performed. Scope was then continuously retracted back into the transverse colon where another polyp was present, which hot biopsy polypectomy was performed. Scope was then continuously retracted back. No polyps, masses or ulcerations within the remainder of the transverse, descending. In the sigmoid colon, another polyp was present, which hot biopsy polypectomy was performed. Scope was then continuously retracted back into the rectum, where it was also retroflexed noting no other pathology. The patient tolerated the procedure well without any complications. She was taken to recovery room in stable condition. RECOMMENDATIONS: The patient will need repeat colonoscopy in one year due to the number of polyps and also one larger flat polyp. Any issues before that be seen at that time. Job ID: [id number] DocumentID: [id number] Dictated Date: 02/25/2022 15:45:18 Delivery Agent Date: 02/26/2022 01:01:48 Dictated By: OBDULIA ABBOTT DO
== END 2022-02-25 16:03 | disposition home or self-care (01) ==
LOC: ENDO 11:15
PROVIDERS: ATTEND Surgery
DX: Z12.11 Encounter for screening for malignant neoplasm of colon (principal); D12.3 Benign neoplasm of transverse colon; K63.5 Polyp of colon; F17.210 Nicotine dependence, cigarettes, uncomplicated
CPT/HCPCS: 88305

== ENCOUNTER → 2022-03-15 | Outpatient (CLI) | payer MEDICARE ==
[~2022-03-15] VITALS: Ht 165 cm; Wt 72.0 kg
[~2022-03-15] MED LIST changes: +REGADENOSON 0.4 MG/5 ML SYR (LEXISCAN) IV ONE
--- NOTE | 2022-03-15 09:34 | Diagnostic Imaging Report ---
INDICATION: Abdominal aortic aneurysm screening. FINDINGS: The proximal abdominal aorta measures 2.3 cm AP x 2.4 cm transverse. The mid abdominal aorta measures 1.4 cm AP x 1.6 cm transverse. The distal abdominal aorta measures 1.3 cm AP x 1.8 cm transverse. The right iliac measures 0.7 x 1.3 cm. The left iliac measures 0.9 x 0.8 cm. IMPRESSION: No evidence of abdominal aortic aneurysm. Dictated by: Dictated on workstation # [id number]
[2022-03-15] MEDS: CATHETER FLUSH 10 ML SYR IVP PRN ×2 (11:32→12:35)
[2022-03-15 12:30] VITALS: BP 117/79
== END ==
LOC: CARD 08:18
PROVIDERS: ATTEND Internal Medicine Cardiovascular Disease
DX: I71.4 Abdominal aortic aneurysm, without rupture (principal); I25.10 Atherosclerotic heart disease of native coronary artery without angina pectoris
CPT/HCPCS: 76775; 78452; 93017; 93306; A9502

== ENCOUNTER 2023-03-15 05:43 | Outpatient (CLI) | payer MEDICARE ==
[~2023-03-15] VITALS: Ht 165.1 cm; Wt 72.0 kg
[~2023-03-15 05:43] MED LIST changes: +ALBU8.5H6 IH; +BISA5TAB20 PO; -BISA5TAB8 PO; +CLOP-31 PO; -CLOP75TA69 PO; -REGADENOSON 0.4 MG/5 ML SYR (LEXISCAN) IV ONE; -RT-ALBUINH IH
[2023-03-21] MEDS ORDERED: FLUT1BLS3 IH (13:34)
[2023-03-21] MEDS ORDERED: EST30C VG (13:34)
[2023-03-21] MEDS ORDERED: SIMV40TA25 PO (13:34)
[2023-03-21] MEDS ORDERED: BUPR1PAT TD (13:34)
== END 2023-03-21 13:48 | disposition home or self-care (01) ==
LOC: PREOP 05:43
PROVIDERS: ATTEND Surgery
DX: Z01.818 Encounter for other preprocedural examination (principal); Z86.010 Personal history of colon polyps

== ENCOUNTER → 2023-05-19 | Outpatient (CLI) | payer MEDICARE ==
[~2023-05-19] MED LIST changes: +BUPR1PAT TD; +CATHETER FLUSH 10 ML SYR IVP PRN; +EST30C VG; +SIMV40TA25 PO
--- NOTE | 2023-05-19 11:39 | Diagnostic Imaging Report ---
RADIOPHARMACEUTICAL: 5.1 mCi Tc-99m Choletec IV INDICATION: Epigastric pain. TECHNIQUE: Anterior dynamic imaging for 1 hour. Additional 60 minutes of imaging was obtained after patient ingested an 8-ounce can of Ensure. FINDINGS: There is homogenous uptake throughout the liver. The gallbladder is visualized at 20 minutes and small bowel at 60 minutes. After ingesting an 8-ounce can of Ensure, there is normal contraction of the gallbladder with normal calculated GBEF at 77%. IMPRESSION: 1. Normal HIDA Scan without evidence of cystic or common duct obstruction. 2. Normal GBEF of 77%. Dictated by: Dictated on workstation # [id number]
== END ==
LOC: CARD 08:17
PROVIDERS: ATTEND Nurse Practitioner
DX: R10.13 Epigastric pain (principal)
CPT/HCPCS: 78227; A9537

== ENCOUNTER 2023-06-21 05:55 | Outpatient (CLI) | payer MEDICARE ==
[~2023-06-21] VITALS: Ht 165.1 cm; Wt 70.9 kg
[~2023-06-21 05:55] MED LIST changes: -CATHETER FLUSH 10 ML SYR IVP PRN
[2023-06-21] MEDS ORDERED: LISI10TA25 PO (13:13)
== END 2023-06-21 13:14 | disposition home or self-care (01) ==
LOC: PREOP 05:55
PROVIDERS: ATTEND Surgery
DX: Z01.818 Encounter for other preprocedural examination (principal)

== ENCOUNTER 2023-07-24 07:05 | Day surgery (SDC) | payer MEDICARE ==
[~2023-07-24] VITALS: Ht 165.1 cm; Wt 70.9 kg
[~2023-07-24 07:05] MED LIST changes: +HURRICAINE EXT TUBE (BENZOCAINE) XX PRN; +LACTATED RINGERS 1,000 ML 1,000 ML IV STA; +LISI10TA25 PO
[2023-07-24] MEDS ORDERED: LACTATED RINGERS 1,000 ML 1,000 ML IV STA (07:10)
[2023-07-24] MEDS ORDERED: HURRICAINE EXT TUBE (BENZOCAINE) XX PRN (07:15)
[2023-07-24 07:44] VITALS: BP 132/75
[2023-07-24] MEDS ORDERED: MIDAZOLAM INJ 2 MG/2 ML VIAL ONE (07:50)
--- NOTE | 2023-07-24 08:00 | Progress Note-Post Operative ---
Post-Operative Progess Note Surgeon (s)/Consumer Lender (s) Surgeon OBDULIA BARCENAS DO Consumer Lender: n/a Pre-Operative Diagnosis epigastric pain Post-Operative Diagnosis Hiatal Hernia Procedure & Operative Findings Date of Procedure 07/24/23 Procedure Performed/Findings EGD w/ biopsies Anesthesia Type per TRAP PULLER Estimated Blood Loss Estimated blood loss (mL): none Specimens/Packing Specimens Removed Antrum, GE OBDULIA BARCENAS DO Jul 24, 2023 08:00
--- NOTE | 2023-07-24 08:02 | Discharge Inst-Simple/Standard ---
Discharge Inst-Standard Patient Instructions/Follow Up Plan of Care/Instructions/FU: 2 weeks Milena Activity as Tolerated: Yes Discharge Diet: Regular Diet OBDULIA BARCENAS DO Jul 24, 2023 08:02
[2023-07-24 08:05] VITALS: BP 117/79
[2023-07-24 08:20] VITALS: BP 103/59
[2023-07-24 08:26] VITALS: BP 103/59
--- NOTE | 2023-07-24 13:56 | Anesthesia-General Post-Op ---
MAC Patient Condition Mental Status/LOC: Same as Preop Cardiovascular: Satisfactory Nausea/Vomiting: Absent Respiratory: Satisfactory Pain: Controlled Complications: Absent Post Op Complications Complications None Follow Up Care/Instructions Patient Instructions None needed. Anesthesiology Discharge Order Discharge Order Patient is doing well, no complaints, stable vital signs, no apparent adverse anesthesia problems. No complications reported per nursing. KAN GUTIERREZ TRAILER STEERER Jul 24, 2023 13:55
--- NOTE | 2023-07-24 16:21 | OPERATIVE REPORT ---
DATE OF SERVICE: 07/24/2023 PREOPERATIVE DIAGNOSIS: Epigastric abdominal pain. POSTOPERATIVE DIAGNOSIS: Small hiatal hernia. PROCEDURE: EGD with biopsy. SURGEON: Obdulia Abbott DO ANESTHESIA: Per SALT GRINDER. ESTIMATED BLOOD LOSS: None. COMPLICATIONS: None. INDICATIONS: The patient is a 68-year-old female with epigastric abdominal pain. She understands risks and benefits of procedure and wishes to proceed. Consent was signed in chart. DESCRIPTION OF PROCEDURE: The patient was taken to endoscopy suite, placed in left lateral recumbent position. Timeout was performed. Scope was inserted in the mouth, down the esophagus, stomach, into the duodenum without difficulty. No polyps, masses or ulcerations within the duodenum. Scope was slowly retracted back into stomach where it was further insufflated. No polyps, masses or ulcerations. Biopsy of the antrum was obtained. Scope was retroflexed noting a small hiatal hernia, no other pathology. Scope was returned to its normal position, slowly withdrawn until distal esophagus. Biopsy of GE junction was obtained. Scope was slowly retracted back until completely removed, noting no other pathology. The patient tolerated the procedure well without any complications, taken to recovery room in stable condition. RECOMMENDATIONS: The patient [ ] [ ] clinic. We will await biopsy results. She will follow up in approximately 2 weeks. The patient would consider workup for gallbladder. Job ID: [id number] DocumentID: [id number] Dictated Date: 07/24/2023 08:30:27 Patient Transporter Date: 07/24/2023 16:19:00 Dictated By: OBDULIA ABBOTT DO
== END 2023-07-24 08:39 | disposition home or self-care (01) ==
LOC: ENDO 07:05
PROVIDERS: ATTEND Surgery
DX: K20.80 Other esophagitis without bleeding (principal); K31.89 Other diseases of stomach and duodenum; K44.9 Diaphragmatic hernia without obstruction or gangrene; B48.8 Other specified mycoses; F17.210 Nicotine dependence, cigarettes, uncomplicated
CPT/HCPCS: 43239; G0416; 88305